=== PATIENT | male | born 1970 | race Caucasian/White ===

== ENCOUNTER 2021-10-25 13:28 | Outpatient (CLI) | payer MEDICARE, MEDICAID | END 2021-10-25 13:29 | disposition home or self-care (01) | LOC: CSHRAD 13:28 | PROVIDERS: ATTEND Pain Medicine Interventional Pain Medicine | DX: T85.695A Other mechanical complication of other nervous system device, implant or graft, initial encounter (principal); T85.615A Breakdown (mechanical) of other nervous system device, implant or graft, initial encounter | CPT/HCPCS: 72072; 72100; 74018 ==

== ENCOUNTER 2022-10-30 20:17 | Emergency (ER) | payer OTHER ==
[~2022-10-30 20:17] MED LIST: Iopamidol 300 61% 100 ML VIAL FS ONE
[2022-10-30 22:04] LABS: Bilirubin Neg (Negative); Blood, Urine Negative (Negative); Clarity Clear (Clear); Glucose, Urine (Dipstick) Normal (Negative); Ketone, Urine Negative (Negative); Leukocyte Negative (Negative); Nitrite Negative (Negative); Protein, Urine (Dipstick) Negative (Neg-Trace); Urobilinogen Normal mg/dL (Less than 2); pH, Urine 6.5 (5.0-9.0)
[2022-10-30 22:14] LABS: Amphetamine Not Detected (NotDetected); Barbiturates Screen Not Detected (NotDetected); Benzodiazepine Screen Not Detected (NotDetected); Cocaine Metabolite Screen Not Detected (NotDetected); Methadone Not Detected (NotDetected); Methamphetamine Not Detected (NotDetected); Opiate Screen Not Detected (NotDetected); Oxycodone Screen Not Detected (NotDetected); Phencyclidine (PCP) Not Detected (NotDetected); THC/Cannabinoid Screen Detected (NotDetected); Tricyclic Screen Detected (NotDetected)
[2022-10-30] MEDS ORDERED: Lorazepam 2 MG/ML VIAL ONE (22:27)
[2022-10-30] MEDS ORDERED: Ketorolac Tromethamine 30 MG/ML VIAL ONE (22:27)
[2022-10-30] MEDS ORDERED: Morphine 4 MG/ML VIAL ONE ×2 (22:27→23:10)
[2022-10-30 22:28] LABS: #Basophils 0.1 10x3/uL (0.0-0.2); #Eosinphils 0.1 10x3/uL (0.0-0.5); #Monocytes 0.4 10x3/uL (0.0-1.1); #Neutrophils 3.5 10x3/uL (1.5-8.4); %Basophils 0.9 % (0.0-2.0); %Eosinophils 0.9 % (0.0-6.0); %Lymphocytes 28.9 % (18.0-47.0); %Monocytes 6.5 % (0.0-10.0); %Neutrophils 62.6 % (40.0-75.0); Hemoglobin 13.4 g/dL (13.5-17.5); Mean Corpuscular Hemoglobin 28.6 pg (27.0-33.0); Platelet Count 352 10x3/uL (150-450); RBC Distribution Width 14.9 % (11.5-14.5); Red Blood Cell (RBC) Count 4.69 10x6/uL (4.32-5.72); White Blood Cell (WBC) Count 5.5 10x3/uL (3.5-10.5)
[2022-10-30 22:31] LABS: SARS-CoV-2 NAA Rapid Test Not Detected (NotDetected)
[2022-10-30 22:39] LABS: ALT (SGPT) 19 U/L (8-55); AST (SGOT) 24 U/L (5-34); Acetaminophen Less than 10.0 mcg/mL (10.0-30.0); Albumin 4.6 g/dL (3.5-5.0); Alcohol Less than 10 mg/dL (Less than 10); Alkaline Phosphatase 50 U/L (40-110); Anion Gap 15 mmol/L (10-20); BUN (Urea Nitrogen) 10 mg/dL (8.9-20.6); Bilirubin, Total 0.6 mg/dL (0.2-1.2); CK (CPK) 421 U/L (30-200); Calc. Creatinine Clearance 0 mL/min (70-130); Calcium 9.6 mg/dL (7.8-10.44); Carbon Dioxide 24 mmol/L (22-29); Chloride 103 mmol/L (98-107); Estimated GFR 71; Globulin 3.6 g/dL (2.4-3.5); Glucose 163 mg/dL (70-105); Potassium 3.5 mmol/L (3.5-5.1); Protein, Total 8.2 g/dL (6.0-8.3); Salicylate Less than 8.0 mg/dL (15.0-30.0); Sodium 138 mmol/L (136-145)
[2022-10-30 22:43] LABS: INR-International Normal Ratio 1.1; PTT 28.9 sec (22.0-33.0); Prothrombin Time 11.9 sec (9.5-12.1)
[2022-10-30] MEDS ORDERED: Acetaminophen 500 MG TAB ONE (22:53)
[2022-10-30] MEDS ORDERED: Piperacillin/Tazobactam 4.5 GM VIAL ONE (23:01)
[2022-10-30] MEDS ORDERED: Vancomycin 1 GM VIAL ONE (23:01)
[2022-10-30] MEDS ORDERED: Diazepam 10 MG/2 ML SYRINGE ONE ×2 (23:11→23:15)
[2022-10-31 00:59] LABS: Lactic Acid 1.1 mmol/L (0.5-2.2)
[2022-10-31] MEDS ORDERED: Morphine 4 MG/ML VIAL ONE (02:26)
== END 2022-10-31 03:35 | disposition short-term general hospital (02) ==
LOC: CSHERS 20:17
DX: L03.311 Cellulitis of abdominal wall (principal); M54.9 Dorsalgia, unspecified; F17.210 Nicotine dependence, cigarettes, uncomplicated; Z18.9 Retained foreign body fragments, unspecified material; Z20.822 Contact with and (suspected) exposure to COVID-19
CPT/HCPCS: 72126; 72129; 74177; 80053; 80306; 80307; 81003; 82550; 83605; 85025; 85610; 85730; 86140; 87040; 87086; 93005; 96365; 96366; 96367; 96374; 96375; 96376; 99285; U0002; 36415; J1885; J2060; J2270; J2543; J3360; J3370; Q9967